=== PATIENT | male | born 1985 | race Caucasian/White ===

== ENCOUNTER → 2022-01-06 | Outpatient (CLI) | payer OTHER ==
--- NOTE | 2022-01-06 15:23 | RAD ---
EXAM: US ABDOMEN LIMITED. HISTORY: Right lower quadrant pain. COMPARISON: None. FINDINGS: Sonographic evaluation was performed in the region of concern along the right lower quadran t and right inguinal region. No sonographic abnormality is identified. No mass or hernia is detected. Images of the pelvis reveal moderate benign prostatic hypertrophy. The prostate measures 4.7 x 4.1 x 3.6 cm and contains some central calcifications. There is mild impression on the bladder base. IMPRESSION: 1. No sonographic correlate for patient's symptoms in the right lower quadrant. Ongoing clinical foll ow-up is recommended. 2. At least moderate benign prostatic hypertrophy for patient age. Electronically signed by: Jacques Warner MD (01/06/2022 3:21 PM) [facility]
== END ==
LOC: US 07:53
PROVIDERS: ATTEND Clinical Nurse Specialist Family Health
DX: N40.0 Benign prostatic hyperplasia without lower urinary tract symptoms (principal)
CPT/HCPCS: 93976